=== PATIENT | male | born 2000 | race Caucasian/White ===

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

== ENCOUNTER 2022-02-24 20:08 | Emergency (ER) | payer MEDICAID ==
[~2022-02-24] VITALS: Ht 162.6 cm; Wt 101.8 kg
[2022-02-24] MEDS ORDERED: HYDROCODONE/ACETAMINOPHEN 5/325MG TABLET PO STA (22:26)
[2022-02-24] MEDS ORDERED: BACITRACIN ZINC OINT UDPKT TOP ONE ×2 (22:30)
[2022-02-25 01:00] VITALS: BP 112/65
[2022-02-25] MEDS ORDERED: BO1 TP (01:02)
[2022-02-25] MEDS ORDERED: HYDR-4001 PO (01:02)
== END 2022-02-25 01:32 | disposition home or self-care (01) ==
LOC: ER 20:08
DX: S42.022A Displaced fracture of shaft of left clavicle, initial encounter for closed fracture (principal); S40.811A Abrasion of right upper arm, initial encounter; S40.812A Abrasion of left upper arm, initial encounter; R51.9 Headache, unspecified; V29.49XA Motorcycle driver injured in collision with other motor vehicles in traffic accident, initial encounter; Y93.89 Activity, other specified; Y92.488 Other paved roadways as the place of occurrence of the external cause
CPT/HCPCS: 73030; 73060; 99284